=== PATIENT | male | born 1940 | race Caucasian/White ===

== ENCOUNTER 2022-10-26 15:36 | Emergency (ER) | payer OTHER ==
[~2022-10-26] VITALS: Ht 188 cm; Wt 74.0 kg
[~2022-10-26 15:36] MED LIST: ACET650T79 PO; ASCO500C49 PO; ASPI-498 OR; CALCCAP PO; CYAN500L4 PO; DIPH50TA PO; HYDR-3679 OR; LISI40TA16 PO; METO25TA5 PO; MISCTAB85 OR; MULT-352 OR; NIFE20CA PO; OMEG120017 PO; SIMV20TA20 PO; VITA400T4 PO
[2022-10-26] MEDS ORDERED: DexAMETHasone SOD PHOS 10MG/1ML VIAL INJ IM ONE (16:15)
[2022-10-26 16:50] LABS: Basophils # (auto) 0 10 ^3/uL (0-0.2); Basophils % (auto) 0.3 % (0.0-2.0); Eosinophils # (auto) 0.1 10 ^3/uL (0-0.8); Eosinophils % (auto) 0.5 % (0.0-7.0); Hematocrit 36.4 % (41.0-53.0); Lymphocytes # (auto) 1.3 10 ^3/uL (0.4-5.4); Lymphocytes % (auto) 10.5 % (10.0-50.0); Mean Corpuscular Hemoglobin 31.6 pg (28.0-32.0); Mean Corpuscular Hgb Conc. 33.1 g/dL (32.0-36.0); Mean Corpuscular Volume 95.6 fL (80.0-100.0); Monocytes # (auto) 1.4 10 ^3/uL (0-1.3); Monocytes % (auto) 11.4 % (0.0-12.0); Neutrophils # (auto) 9.2 10 ^3/uL (1.6-8.6); Neutrophils % (auto) 77.3 % (37.0-80.0); Nucleated Red Blood Cells % 0.1 %; Red Blood Cells 3.81 10^6/uL (4.5-5.90); White Blood Cell 11.9 10^3/uL (4.4-10.8)
[2022-10-26 16:55] LABS: Alanine Aminotransferase 25 U/L (7-40); Albumin 4.6 g/dL (3.2-4.8); Alkaline Phosphatase 84 U/L (46-116); Anion Gap 5 (5-15); Aspartate Aminotransferase 16 U/L (13-40); BUN/Creatinine Ratio 14.9 (10.0-20.0); Bilirubin, Total 0.6 mg/dL (0.2-1.0); Blood Urea Nitrogen 14 mg/dL (9-23); Calcium 9.4 mg/dL (8.7-10.4); Carbon Dioxide 31 mmol/L (20-30); Chloride 108 mmol/L (98-107); Glucose 89 mg/dL (74-106); Lipase 41 U/L (12-53); Potassium 3.3 mmol/L (3.5-5.1); Sodium 144 mmol/L (136-145); Total Protein 6.4 g/dL (5.7-8.2)
[2022-10-26 20:36] LABS: Urine Bacteria NONE SEEN /hpf (None Seen); Urine Blood Negative /uL (Negative); Urine Clarity Clear (Clear); Urine Color Colorless (Yellow); Urine Mucus FEW (None Seen); Urine Protein, UAD Negative (Negative); Urine Specific Gravity 1.006 (1.001-1.035); Urine Urobilinogen Normal (Negative); Urine WBC <1 /hpf (0 - 3); Urine pH 7.5 (5.0-8.0)
[2022-10-26] MEDS ORDERED: BENZ100C97 PO (20:52)
[2022-10-26] MEDS ORDERED: ALBU108A5 IN (20:52)
[2022-10-26] MEDS ORDERED: LORA-622 PO (20:52)
[2022-10-26 21:00] VITALS: BP 163/100; PULSE 100; RESP 20; TEMP 98.8; O2SAT 96
== END 2022-10-26 21:13 | disposition home or self-care (01) ==
LOC: ER 15:36
DX: B34.9 Viral infection, unspecified (principal); I10 Essential (primary) hypertension; J44.9 Chronic obstructive pulmonary disease, unspecified; Z79.1 Long term (current) use of non-steroidal anti-inflammatories (NSAID); Z79.82 Long term (current) use of aspirin; Z79.899 Other long term (current) drug therapy
CPT/HCPCS: 36415; 71046; 80053; 81001; 83690; 83880; 84484; 85025; 85379; 93005; 96372; 99285; J1100

== ENCOUNTER 2024-12-18 10:16 | Emergency (ER) | payer OTHER ==
[2024-12-18] VITALS (7 sets, daily range): BP systolic 129–133; BP diastolic 65–76; PULSE 68–90; RESP 13–20; TEMP 97.6–97.7; O2SAT 94–95
[~2024-12-18] VITALS: Ht 188 cm; Wt 76.7 kg
[~2024-12-18 10:16] MED LIST changes: +ALBU108A5 IN; +AMLO1TAB22 PO; +BENZ100C97 PO; +CLON0.1T PO; +DOXY-286 PO; +LORA-622 PO; +METO-289 PO; -NIFE20CA PO; +NIFE20CA13 PO
--- NOTE | 2024-12-18 10:52 | ED.PDOC ---
History of Present Illness HPI Comments This is a 84 year old male presenting to the ED with chief complaint of abnormal labs. Patient reports that he had blood drawn 2 days ago ordered by his PCP. Patient relays that he was called today by his PCP, advising him to come to the ED due to his Hemoglobin being low and needing a transfusion. Patient states he currently feels a bit weak. Patient denies any chest pain, SOB, dizziness, N/V, syncope, melena, or hematemesis. Chief Complaint: Abnormal LAB's Time Seen by MD: 10:49 Primary Care Provider: STEPHANIE Reviewed Notes: Nurses Notes, Medications, Allergies Allergies: Coded Allergies: No Known Drug Allergy (Verified Allergy, Unknown, 05/15/15) Home Meds Active Scripts Doxycycline Hyclate (DOXYCYCLINE HYCLATE) 100 Mg Tab, 1 TAB PO BID, #14 TAB Prov:MARQUES SAMUELS MD 11/12/22 Albuterol Sulfate (Albuterol Sulfate Hfa) 108 Mcg/Act Aer, 108 MCG IN Q4HP PRN, #1 AER Prov:GEETA BRUNSON 10/26/22 Benzonatate (Benzonatate) 100 Mg Cap, 1 CAP PO TID, #20 CAP Prov:GEETA BRUNSON 10/26/22 Loratadine (Claritin) 10 Mg Tab, 1 TAB PO DAILY for 14 Days, #14 TAB 0 Refills Prov:GEETA BRUNSON 10/26/22 Reported Medications Metoprolol Succinate (Metoprolol Succinate Er) 50 Mg Tab, 50 MG PO DAILY for 30 Days, MG 11/12/22 Clonidine Hydrochloride (Clonidine Hcl) 0.1 Mg Tab, 0.1 MG PO TID for 30 Days, MG 11/12/22 Amlodipine Besylate (Amlodipine Besylate) 5 Mg Tab, 10 MG PO DAILY for 30 Days, MG 11/12/22 Metoprolol Tartrate (Metoprolol Tartrate) 25 Mg Tab, 25 MG PO BID for 30 Days, MG 05/16/15 Alpha Tocopheryl Acid Succinat (VITAMIN E) 400 Unit Tab, 1000 UNIT PO DAILY, TAB 05/16/15 Cyanocobalamin (Vitamin B 12) 500 Mcg Shad, 500 MCG PO DAILY, SHAD 05/16/15 Multiple Vitamin (Multi Vitamin Mens) Mens Tab, 1 OR DAILY, TAB 05/16/15 Ascorbic Acid (VITAMIN C) 500 Mg Cap, 1000 MG PO DAILY, CAP 05/16/15 Fish Oil (Fish Oil) 1,200 Mg Cap, 1200 MG PO DAILY, CAP 05/16/15 Misc Natural Products (Osteo Bi-Flex Triple Stre) Triple Tab, 1 TAB OR BID, TAB 05/16/15 Calcium Carbonate-Cholecalcife (CALCIUM PLUS VITAMIN D) Vit D Cap, 1 D PO DAILY, CAP 05/16/15 Aspirin (ASPIRIN 81) 81 Mg Tab, 81 MG OR DAILY, TAB 05/16/15 Diphenhydramine Hcl (Diphenhydramine Hcl) 50 Mg Tab, 50 MG PO PRN for FOR ITCHING, TAB 05/16/15 Hydrocodone-Acetaminophen (VICODIN ES) 1 Tab Tab, 1 TAB OR, TAB 05/16/15 Acetaminophen (Tylenol Arthritis Pain) 650 Mg Tab, 650 MG PO PRN, TAB 05/16/15 Nifedipine (Nifedipine) 20 Mg Cap, 30 MG PO DAILY, CAP 05/16/15 Lisinopril (Lisinopril) 40 Mg Tab, 1 TAB PO DAILY, #30 TAB 5 Refills 05/16/15 Simvastatin (Simvastatin) 20 Mg Tab, 1 TAB PO QPM, #30 TAB 5 Refills 05/16/15 Information Source: Patient Mode of Arrival: Ambulatory Severity: Mild Timing: Days Duration: Since onset Prehospital treatment: None Past Medical History PAST MEDICAL HISTORY: AFIB, CHF, COPD, HTN Surgical History: Denies all surgeries Family History Family History: Reviewed,noncontributory to illness, Family hx of Cancer Social History Smoker: Non-Smoker Alcohol: Denies ETOH Use Drugs: Denies Drug Use Lives In: Home Constitutional: reports: weakness; denies: chills, diaphoresis, fatigue, fever, malaise, sweats, others EENTM: denies: blurred vision, double vision, ear bleeding, ear discharge, ear drainage, ear pain, ear ringing, eye pain, eye redness, hearing loss, mouth pain, mouth swelling, nasal discharge, nose bleeding, nose congestion, nose pain, photophobia, tearing, throat pain, throat swelling, voice changes, others Respiratory: denies: cough, hemoptysis, orthopnea, SOB at rest, shortness of breath, SOB with excertion, stridor, wheezing, others Cardiovascular: denies: chest pain, dizzy spells, diaphoresis, Dyspnea on exertion, edema, irregular heart beat, left arm pain, lightheadedness, palpitations, PND, syncope, others Gastrointestinal: denies: abdomen distended, abdominal pain, blood streaked bowels, constipated, diarrhea, dysphagia, difficulty swallowing, hematemesis, melena, nausea, poor appetite, poor fluid intake, rectal bleeding, rectal pain, vomiting, others Genitourinary: denies: burning, dysuria, flank pain, frequency, hematuria, incontinence, penile discharge, penile sore, pain, testicle pain, testicle swelling, urgency, others Neurological: denies: dizziness, fainting, headache, left sided numbness, left sided weakness, numbness, paresthesia, pre-existing deficit, right sided numbness, right sided weakness, seizure, speech problems, tingling, tremors, weakness, others Musculoskeletal: denies: back pain, gout, joint pain, joint swelling, muscle pain, muscle stiffness, neck pain, others Integumetry: denies: bruises, change in color, change in hair/nails, dryness, laceration, lesions, lumps, rash, wounds, others Allergic/Immunocompromised: denies: Difficulty Healing, Frequent Infections, Hives, Itching, others Hematologic/Lymphatic: denies: anemia, blood clots, easy bleeding, easy bruising, swollen glands, others Endocrine: denies: excessive hunger, excessive sweating, excessive thirst, excessive urination, flushing, intolerance to cold, intolerance to heat, unexplained weight gain, unexplained weight loss, others Psychiatric: denies: anxiety, bipolar disorder, depression, hopeless, panic disorder, schizophrenia, sleepless, suicidal, others All Other Systems: Reviewed and Negative Physical Exam General Appearance: No Apparent Distress HEENT: Pale Conjuntivae (L), Pale Conjuntivae (R), Pharynx Normal, TMs Normal Neck: Full Range of Motion, Non-Tender, Normal, Normal Inspection Respiratory: Chest Non-Tender, Lungs Clear, No Accessory Muscle Use, No Respiratory Distress, Normal Breath Sounds Cardiovascular: No Edema, No JVD, No Murmur, No Gallop, Normal Peripheral Pulses, Regular Rate/Rhythm Breast Exam: Deferred Gastrointestinal: No Organomegaly, Non Tender, No Pulsatile Mass, Normal Bowel Sounds, Soft Genitalia: Deferred Pelvic: Deferred Rectal: Deferred Extremities: No calf tenderness, Normal capillary refill, No pedal edema Musculoskeletal : Apperance: Normal Neurologic: Alert, protection specialist II-XII nml as Tested, Motor Weakness, Normal Affect, Normal Mood, No Sensory Deficits Cerebellar Function: Normal Reflexes: Normal Skin: Dry, Pallor, Warm Lymphatic: No Adenopathy Was a procedure done? Was a procedure done?: No Differential Dx Considerations may include: Anemia, generalized weakness, electrolyte imbalance X-Ray, Labs, Meds, VS Vital Signs Date Time Temp Pulse Resp B/P (MAP) Pulse Ox O2 Delivery O2 Flow Rate FiO2 12/18/24 16:00 72 20 129/74 (92) 94 12/18/24 15:30 87 19 128/86 (100) 93 12/18/24 15:15 97.6 68 13 132/71 97.6 12/18/24 15:00 97.6 67 20 128/72 (90) 96 97.6 12/18/24 15:00 97.6 68 13 132/71 97.6 12/18/24 14:50 97.6 68 13 131/65 97.6 12/18/24 14:30 97.6 65 14 126/64 (84) 93 97.6 12/18/24 14:00 90 17 94 Room Air* 0 21 12/18/24 14:00 90 17 129/73 (91) 94 12/18/24 10:19 97.4 93 18 134/86 94 97.4 Lab Test 12/18/24 14:04 12/18/24 11:10 Range/Units Urine Color Light-yellow Yellow Urine Clarity Clear Clear Urine pH 6.5 5.0-9.0 Urine Specific [place] 1.010 1.001-1.035 Urine Protein Negative Negative Urine Ketones Negative Negative Urine Blood Negative Negative /uL Urine Nitrite Negative Negative Urine Bilirubin Negative Negative Urine Urobilinogen Normal Negative mg/dL Urine Leukocyte Esterase Negative Negative /uL Urine RBC 1 0 - 3 /hpf Urine Microscopic WBC 2 0-3 /HPF Urine Squamous Epithelial Cells None seen <5 /hpf Urine Bacteria None seen None Seen /hpf Urine Glucose Normal Normal mg/dL White Blood Count 8.1 4.4-10.8 10^3/uL Red Blood Count 2.99 L 4.5-5.90 10^6/uL Hemoglobin 7.1 L 13.5-17.5 g/dL Hematocrit 23.3 L 41.0-53.0 % Mean Corpuscular Volume 77.9 L 80.0-100.0 fL Mean Corpuscular Hemoglobin 23.6 L 28.0-32.0 pg Mean Corpuscular Hemoglobin Concent 30.3 L 32.0-36.0 g/dL Red Cell Distribution Width 17.3 H 11.8-14.3 % Platelet Count 373 140-450 10^3/uL Mean Platelet Volume 7.4 6.9-10.8 fL Neutrophils (%) (Auto) 76.2 37.0-80.0 % Lymphocytes (%) (Auto) 7.8 L 10.0-50.0 % Monocytes (%) (Auto) 13.9 H 0.0-12.0 % Eosinophils (%) (Auto) 1.1 0.0-7.0 % Basophils (%) (Auto) 1.0 0.0-2.0 % Neutrophils # (Auto) 6.2 1.6-8.6 10 ^3/uL Lymphocytes # (Auto) 0.6 0.4-5.4 10 ^3/uL Monocytes # (Auto) 1.1 0-1.3 10 ^3/uL Eosinophils # (Auto) 0.1 0-0.8 10 ^3/uL Basophils # (Auto) 0.1 0-0.2 10 ^3/uL Nucleated Red Blood Cells 0.1 % Sodium Level 146 H 136-145 mmol/L Potassium Level 3.6 3.5-5.1 mmol/L Chloride Level 108 H 98-107 mmol/L Carbon Dioxide Level 28 20-31 mmol/L Anion Gap 10 5-15 Blood Urea Nitrogen 23 9-23 mg/dL Creatinine 1.44 H 0.700-1.30 mg/dL Glomerular Filtration Rate Calc 47 >90 mL/min BUN/Creatinine Ratio 16.0 10.0-20.0 Serum Glucose 107 H 74-106 mg/dL Calcium Level 9.3 8.7-10.4 mg/dL The patient's CBC shows anemia with a hemoglobin of 7.1 and hematocrit 23.3 The patient's chemistry panel is within normal limits with a creatinine of 1.44 The urine test is negative At this time, the patient is discharged The patient will follow up with the primary care doctor The patient did receive 1 unit of packed red blood cells. The patient understands and agrees with the management. Time of 1ST Reevaluation: 16:51 Reevaluation 1ST: Unchanged Patient Education/Counseling: Diagnosis, Treatment, Prognosis, Need For Follow Up Family Education/Counseling: No Family Present SEPSIS Sepsis Screen Date sepsis recognized/suspect: Dec 18, 2024 Time Sepsis recognized/suspect: 1021 Recent Procedure: No On Antibiotic Therapy: No Respiratory Rate >20: No Heart Rate >90: Yes Temp<36 C (96.8 F) or >38.3 C: No SBP <90 or MAP <65 mmHG: No New Acute Mental Status Change: No Is the patient on CPAP, BIPAP,: No Physician Orders Obtain Consent For: (12/18/24 13:16) Administer Blood Products UD (12/18/24 13:16) Vital Signs Date Time Temp Pulse Resp B/P (MAP) Pulse Ox O2 Delivery O2 Flow Rate FiO2 12/18/24 16:00 72 20 129/74 (92) 94 12/18/24 15:30 87 19 128/86 (100) 93 12/18/24 15:15 97.6 68 13 132/71 97.6 12/18/24 15:00 97.6 67 20 128/72 (90) 96 97.6 12/18/24 15:00 97.6 68 13 132/71 97.6 12/18/24 14:50 97.6 68 13 131/65 97.6 12/18/24 14:30 97.6 65 14 126/64 (84) 93 97.6 12/18/24 14:00 90 17 94 Room Air* 0 21 12/18/24 14:00 90 17 129/73 (91) 94 12/18/24 10:19 97.4 93 18 134/86 94 97.4 Laboratory Tests Test 12/18/24 11:10 White Blood Count 8.1 10^3/uL (4.4-10.8) Departure 1 Departure Time of Disposition: 16:51 Impression: Primary Impression: Anemia Qualified Codes: D64.9 - Anemia, unspecified Disposition: 01 HOME / SELF CARE / HOMELESS Condition: Fair Discharged With: Self Critical Care Note Critical Care Time?: No Stability Stability form required: No Heart Score Heart Score: Heart Score Response (Comments) Value History N/A 0 EKG N/A 0 Age N/A 0 Risk Factors N/A 0 Troponin N/A 0 Total 0 I personally scribed for RODRIGO NIELSEN MD ([email or web address]) on 12/18/24 at 10:52. Electronically submitted by Guy Wolf ([email or web address]). RODRIGO NIELSEN MD Dec 18, 2024 10:52
[2024-12-18 11:37] LABS: Nucleated Red Blood Cells % 0.1 %
[2024-12-18 11:39] LABS: Hematocrit 23.3 % (41.0-53.0); Hemoglobin 7.1 g/dL (13.5-17.5); Mean Corpuscular Hemoglobin 23.6 pg (28.0-32.0); Mean Corpuscular Volume 77.9 fL (80.0-100.0)
[2024-12-18 11:53] LABS: Potassium 3.6 mmol/L (3.5-5.1)
[2024-12-18 11:54] LABS: Anion Gap 10 (5-15); Carbon Dioxide 28 mmol/L (20-31)
[2024-12-18 11:55] LABS: Calcium 9.3 mg/dL (8.7-10.4)
[2024-12-18 11:59] LABS: BUN/Creatinine Ratio 16.0 (10.0-20.0); Blood Urea Nitrogen 23 mg/dL (9-23)
[2024-12-18 12:07] LABS: Chloride 108 mmol/L (98-107); Glucose 107 mg/dL (74-106); Sodium 146 mmol/L (136-145)
[2024-12-18 14:21] LABS: Urine Protein, UAD Negative (Negative)
== END 2024-12-18 18:19 | disposition home or self-care (01) ==
LOC: ER 10:16
DX: D64.9 Anemia, unspecified (principal); I11.0 Hypertensive heart disease with heart failure; I50.9 Heart failure, unspecified; J44.9 Chronic obstructive pulmonary disease, unspecified; I48.91 Unspecified atrial fibrillation; Z79.899 Other long term (current) drug therapy; Z79.82 Long term (current) use of aspirin
CPT/HCPCS: 36415; 36430; 80048; 81001; 85025; 86850; 86900; 86901; 86920; 99285; P9016